=== PATIENT | female | born 1980 | race African-American/Black ===

== ENCOUNTER 2021-05-06 19:40 | Emergency (ER) | payer MEDICAID ==
[2021-05-07 02:01] LABS: ALT (SGPT) 15 U/L (8-55); AST (SGOT) 17 U/L (5-34); Alkaline Phosphatase 72 U/L (40-110); Anion Gap 16 mmol/L (10-20); BUN (Urea Nitrogen) 9 mg/dL (7.0-18.7); Bilirubin, Total 0.5 mg/dL (0.2-1.2); CK (CPK) 55 U/L (29-168); Calc. Creatinine Clearance 0 mL/min (70-130); Calcium 9.1 mg/dL (7.8-10.44); Carbon Dioxide 22 mmol/L (22-29); Chloride 101 mmol/L (98-107); Globulin 3.2 g/dL (2.4-3.5); Glucose 136 mg/dL (70-105); Magnesium 1.9 mg/dL (1.6-2.6); Potassium 4.1 mmol/L (3.5-5.1); Protein, Total 7.2 g/dL (6.0-8.3); Sodium 135 mmol/L (136-145)
[2021-05-07 02:02] LABS: #Basophils 0.1 10x3/uL (0.0-0.2); #Eosinphils 0.1 10x3/uL (0.0-0.5); #Monocytes 0.6 10x3/uL (0.0-1.1); #Neutrophils 3.9 10x3/uL (1.5-8.4); %Basophils 0.9 % (0.0-2.0); %Eosinophils 0.9 % (0.0-6.0); %Lymphocytes 15.2 % (18.0-47.0); %Monocytes 10.8 % (0.0-10.0); %Neutrophils 69.3 % (40.0-75.0); Mean Corpuscular HGB CONC 34.8 g/dL (32.0-36.0); Mean Corpuscular Hemoglobin 32.1 pg (27.0-33.0); Mean Corpuscular Volume 92.1 fl (81.6-98.3); Mean Platelet Volume 8.9 fl (7.4-10.4); Platelet Count 269 10x3/uL (150-450); RBC Distribution Width 11.9 % (11.5-14.5); Red Blood Cell (RBC) Count 4.68 10x6/uL (3.90-5.03); White Blood Cell (WBC) Count 5.7 10x3/uL (3.5-10.5)
[2021-05-07] MEDS ORDERED: Ketorolac Tromethamine 30 MG/ML VIAL ONE (02:08)
[2021-05-07 17:59] LABS: SARS-CoV-2 PCR by NAA DETECTED (NotDetected)
== END 2021-05-07 02:40 | disposition home or self-care (01) ==
LOC: CSHERS 19:40
DX: U07.1 COVID-19 (principal); E11.9 Type 2 diabetes mellitus without complications; Z87.891 Personal history of nicotine dependence; Z79.84 Long term (current) use of oral hypoglycemic drugs
CPT/HCPCS: 36415; 36416; 71045; 80053; 82550; 83735; 84484; 85025; 93005; 96374; J1885; U0003; U0005

== ENCOUNTER 2021-11-22 16:42 | Emergency (ER) | payer MEDICAID, SELFPAY ==
[2021-11-22 17:38] LABS: #Basophils 0.1 10x3/uL (0.0-0.2); #Eosinphils 0.3 10x3/uL (0.0-0.5); #Monocytes 0.6 10x3/uL (0.0-1.1); #Neutrophils 5.7 10x3/uL (1.5-8.4); %Basophils 0.7 % (0.0-2.0); %Eosinophils 3.2 % (0.0-6.0); %Lymphocytes 24.1 % (18.0-47.0); %Monocytes 6.6 % (0.0-10.0); %Neutrophils 64.7 % (40.0-75.0); Hemoglobin 15.2 g/dL (12.0-15.5); Mean Corpuscular Hemoglobin 32.3 pg (27.0-33.0); Mean Corpuscular Volume 92.3 fl (81.6-98.3); Mean Platelet Volume 9.2 fl (7.4-10.4); Platelet Count 324 10x3/uL (150-450); RBC Distribution Width 12.2 % (11.5-14.5); White Blood Cell (WBC) Count 8.8 10x3/uL (3.5-10.5)
[2021-11-22] MEDS ORDERED: Ketorolac Tromethamine 30 MG/ML VIAL ONE (17:43)
[2021-11-22 17:52] LABS: ALT (SGPT) 11 U/L (8-55); AST (SGOT) 11 U/L (5-34); Albumin 4.1 g/dL (3.5-5.0); Alkaline Phosphatase 63 U/L (40-110); Anion Gap 11 mmol/L (10-20); BUN (Urea Nitrogen) 18 mg/dL (7.0-18.7); Bilirubin, Total 0.7 mg/dL (0.2-1.2); Calc. Creatinine Clearance 0 mL/min (70-130); Calcium 9.2 mg/dL (7.8-10.44); Carbon Dioxide 24 mmol/L (22-29); Chloride 106 mmol/L (98-107); Estimated GFR 98; Globulin 3.1 g/dL (2.4-3.5); Glucose 252 mg/dL (70-105); Potassium 3.7 mmol/L (3.5-5.1); Protein, Total 7.2 g/dL (6.0-8.3); Sodium 137 mmol/L (136-145)
[2021-11-22 17:55] LABS: Bilirubin Neg (Negative); Blood, Urine 50 (Negative); Clarity Clear (Clear); Glucose, Urine (Dipstick) >=1000 mg/dL (Negative); Ketone, Urine Negative (Negative); Leukocyte Negative (Negative); Nitrite Negative (Negative); Protein, Urine (Dipstick) Negative (Neg-Trace); Urobilinogen Normal mg/dL (Less than 2)
[2021-11-22 18:03] LABS: Pregnancy Test - Urine (BHCG) Negative (Negative); Pregu Control Background? CLEAR/WHITE (CLR/WHITE); Pregu Control Bar Appear? YES (CONTROL BAR)
[2021-11-22 18:17] LABS: Bacteria/HPF None Seen HPF (None Seen); Squamous Epithelial 0-3 HPF (0-3); WBC/HPF 0-3 HPF (0-3)
== END 2021-11-22 19:20 | disposition home or self-care (01) ==
LOC: CSHERS 16:42
DX: N93.9 Abnormal uterine and vaginal bleeding, unspecified (principal); F17.210 Nicotine dependence, cigarettes, uncomplicated; E11.9 Type 2 diabetes mellitus without complications
CPT/HCPCS: 36415; 76856; 80053; 81003; 81015; 81025; 85025; 96372; J1885

== ENCOUNTER 2021-11-26 18:17 | Emergency (ER) | payer MEDICAID, SELFPAY ==
[2021-11-26 20:09] LABS: SARS-CoV-2 NAA Rapid Test DETECTED (NotDetected)
== END 2021-11-26 20:11 | disposition home or self-care (01) ==
LOC: CSHERS 18:17
DX: U07.1 COVID-19 (principal); E11.9 Type 2 diabetes mellitus without complications; F17.210 Nicotine dependence, cigarettes, uncomplicated; Z79.899 Other long term (current) drug therapy; Z79.84 Long term (current) use of oral hypoglycemic drugs
CPT/HCPCS: 99283; U0002

== ENCOUNTER 2021-12-03 14:50 | Outpatient (CLI) | payer MEDICAID | END 2021-12-03 14:51 | disposition home or self-care (01) | LOC: CSHMAMMO 14:50 | PROVIDERS: ATTEND Family Medicine | DX: Z12.31 Encounter for screening mammogram for malignant neoplasm of breast (principal); Z80.3 Family history of malignant neoplasm of breast | CPT/HCPCS: 77063; 77067 ==

== ENCOUNTER 2022-03-02 20:32 | Emergency (ER) | payer MEDICAID, SELFPAY | END 2022-03-02 21:48 | disposition left against medical advice (07) | LOC: CSHERS 20:32 | DX: Z53.21 Procedure and treatment not carried out due to patient leaving prior to being seen by health care provider (principal) ==

== ENCOUNTER 2022-09-14 20:39 | Emergency (ER) | payer OTHER, SELFPAY ==
[2022-09-14] MEDS ORDERED: Ketorolac Tromethamine 30 MG/ML VIAL ONE (23:37)
== END 2022-09-14 23:41 | disposition home or self-care (01) ==
LOC: CSHERS 20:39
DX: S33.5XXA Sprain of ligaments of lumbar spine, initial encounter (principal); S63.614A Unspecified sprain of right ring finger, initial encounter; J44.9 Chronic obstructive pulmonary disease, unspecified; E11.9 Type 2 diabetes mellitus without complications; F17.210 Nicotine dependence, cigarettes, uncomplicated; W01.0XXA Fall on same level from slipping, tripping and stumbling without subsequent striking against object, initial encounter
CPT/HCPCS: 72131; 96372; J1885

== ENCOUNTER 2022-10-15 00:04 | Emergency (ER) | payer SELFPAY | END 2022-10-15 01:12 | disposition home or self-care (01) | LOC: CSHERS 00:04 | DX: J40 Bronchitis, not specified as acute or chronic (principal); J44.9 Chronic obstructive pulmonary disease, unspecified; E11.9 Type 2 diabetes mellitus without complications; F17.210 Nicotine dependence, cigarettes, uncomplicated | CPT/HCPCS: 99284 ==

== ENCOUNTER 2023-10-14 10:28 | Emergency (ER) | payer OTHER ==
[2023-10-14] MEDS ORDERED: Ketorolac Tromethamine 30 MG (1 mL) VIAL ONE (11:41)
[2023-10-14] MEDS ORDERED: Lidocaine 4% Patch TD SCH (12:00)
[2023-10-14 12:07] LABS: Bilirubin Neg (Negative); Blood, Urine Negative (Negative); Clarity Clear (Clear); Glucose, Urine (Dipstick) >=1000 mg/dL (Negative); Ketone, Urine Negative (Negative); Leukocyte Negative (Negative); Nitrite Negative (Negative); Protein, Urine (Dipstick) Negative (Neg-Trace); Specific Gravity, Urine 1.015 (1.005-1.030); Urobilinogen Normal mg/dL (Less than 2)
[2023-10-14 12:08] LABS: Pregnancy Test - Urine (BHCG) Negative (Negative)
[2023-10-14 12:09] LABS: Pregu Control Background? CLEAR/WHITE (CLR/WHITE); Pregu Control Bar Appear? YES (CONTROL BAR); Specific Gravity 1.015 (1.002-1.036)
[2023-10-14 12:19] LABS: Bacteria/HPF Rare-Few HPF (None Seen); CAUTI Indications for Culture Pelvic or flank pain; RBC/HPF 0-3 HPF (0-3); Squamous Epithelial 0-3 HPF (0-3); WBC/HPF 0-3 HPF (0-3)
[2023-10-14 12:20] LABS: Urine Culture Reflex No No
== END 2023-10-14 13:56 | disposition home or self-care (01) ==
LOC: CSHERS 10:28
DX: M62.838 Other muscle spasm (principal); F17.210 Nicotine dependence, cigarettes, uncomplicated; J44.9 Chronic obstructive pulmonary disease, unspecified; E11.9 Type 2 diabetes mellitus without complications
CPT/HCPCS: 71250; 72125; 81001; 81025; 96372; J1885